=== PATIENT | male | born 1990 | race Hispanic/Latino ===

== ENCOUNTER 2018-08-01 19:32 | Emergency (ER) | payer SELFPAY ==
[2018-08-01] MEDS ORDERED: HYDROCODONE/APAP 5/325 MG TAB ONE (20:26)
[2018-08-01] MEDS ORDERED: TETANUS & DIPHTHERIA TOX,ADULT 0.5 ML VIAL ONE (20:26)
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
== END 2018-08-01 21:30 | disposition home or self-care (01) ==
LOC: ER 19:32
DX: S61.213A Laceration without foreign body of left middle finger without damage to nail, initial encounter (principal); S60.413A Abrasion of left middle finger, initial encounter; V89.2XXA Person injured in unspecified motor-vehicle accident, traffic, initial encounter; Z23 Encounter for immunization
CPT/HCPCS: 90714; 99283